=== PATIENT | female | born 1960 | race Caucasian/White ===

== ENCOUNTER → 2019-12-09 | Emergency (ER) | payer OTHER ==
[~2019-12-09] VITALS: Ht 157.5 cm; Wt 117.9 kg
[2019-12-09 18:59] VITALS: BP 154/83
== END | disposition home or self-care (01) ==
LOC: EDBD 16:14 → ER 16:14
DX: S50.812A Abrasion of left forearm, initial encounter (principal); M62.830 Muscle spasm of back; R51 Headache; M54.2 Cervicalgia; V43.52XA Car driver injured in collision with other type car in traffic accident, initial encounter; Y93.I9 Activity, other involving external motion; Y92.488 Other paved roadways as the place of occurrence of the external cause; Y99.8 Other external cause status
CPT/HCPCS: 70450; 72125; 72131

== ENCOUNTER 2024-07-23 14:58 | Inpatient (IN) | payer OTHER ==
[~2024-07-23] VITALS: Ht 157.5 cm; Wt 111.0 kg
--- NOTE | 2024-07-23 15:15 | ED.PDOC ---
History of Present Illness HPI Comments 64Y F with PMHx HTN presents to ED with chief complaint numbness and slurred speech x today. Pt reports numbness of left middle finger and tongue. All symptoms lasted approximately 30minutes and have resolved upon ED evaluation. Pt states BP was 200s/100s at home. Pt has not taken HTN meds in 6 months. No other symptoms/history reported. Time Seen by MD: 15:10 Reviewed Notes: Nurses Notes, Medications, Allergies Allergies: Coded Allergies: NO KNOWN ALLERGIES (Unverified , 12/09/19) Information Source: Patient Mode of Arrival: Ambulatory Severity: Mild Timing: Minutes Duration: Minutes Prehospital treatment: None Medication Refill: Ran out of Medication, For: Hypertension Past Medical History PAST MEDICAL HISTORY: HTN Surgical History: Denies all surgeries SAP PP CONSULTANT History: Denies all SAP PP CONSULTANT Hx Family History Family History: Reviewed,noncontributory to illness Social History Smoker: Non-Smoker Alcohol: Rarely Drugs: Denies Drug Use Lives In: Home Constitutional: denies: chills, diaphoresis, fatigue, fever, malaise, sweats, weakness, others EENTM: denies: blurred vision, double vision, ear bleeding, ear discharge, ear drainage, ear pain, ear ringing, eye pain, eye redness, hearing loss, mouth pain, mouth swelling, nasal discharge, nose bleeding, nose congestion, nose pain, photophobia, tearing, throat pain, throat swelling, voice changes, others Respiratory: denies: cough, hemoptysis, orthopnea, SOB at rest, shortness of breath, SOB with excertion, stridor, wheezing, others Cardiovascular: denies: chest pain, dizzy spells, diaphoresis, Dyspnea on exertion, edema, irregular heart beat, left arm pain, lightheadedness, palpitations, PND, syncope, others Gastrointestinal: denies: abdomen distended, abdominal pain, blood streaked bowels, constipated, diarrhea, dysphagia, difficulty swallowing, hematemesis, melena, nausea, poor appetite, poor fluid intake, rectal bleeding, rectal pain, vomiting, others Genitourinary: denies: abnormal vagina bleeding, burning, dyspareunia, dysuria, flank pain, frequency, hematuria, incontinence, pain, , vagina discharge, urgency, others Neurological: reports: numbness (lt middle finger, tongue), others (slurred speech); denies: dizziness, fainting, headache, left sided numbness, left sided weakness, paresthesia, pre-existing deficit, right sided numbness, right sided weakness, seizure, speech problems, tingling, tremors, weakness Musculoskeletal: denies: back pain, gout, joint pain, joint swelling, muscle pain, muscle stiffness, neck pain, others Integumetry: denies: bruises, change in color, change in hair/nails, dryness, laceration, lesions, lumps, rash, wounds, others Allergic/Immunocompromised: denies: Difficulty Healing, Frequent Infections, Hives, Itching, others Hematologic/Lymphatic: denies: anemia, blood clots, easy bleeding, easy bruising, swollen glands, others Endocrine: denies: excessive hunger, excessive sweating, excessive thirst, excessive urination, flushing, intolerance to cold, intolerance to heat, unexplained weight gain, unexplained weight loss, others Psychiatric: denies: anxiety, bipolar disorder, depression, hopeless, panic disorder, schizophrenia, sleepless, suicidal, others All Other Systems: Reviewed and Negative Physical Exam General Appearance: No Apparent Distress, Normal HEENT: Normal ENT Inspection, Pharynx Normal, TMs Normal Neck: Full Range of Motion, Non-Tender, Normal, Normal Inspection Respiratory: Chest Non-Tender, Lungs Clear, No Accessory Muscle Use, No Respiratory Distress, Normal Breath Sounds Cardiovascular: No Edema, No JVD, No Murmur, No Gallop, Normal Peripheral Pulses, Regular Rate/Rhythm Breast Exam: Deferred Gastrointestinal: No Organomegaly, Non Tender, No Pulsatile Mass, Normal Bowel Sounds, Soft Genitalia: Deferred Pelvic: Deferred Rectal: Deferred Extremities: No calf tenderness, Normal capillary refill, Normal inspection, No rmal range of motion, Non-tender, No pedal edema Musculoskeletal : Apperance: Normal Neurologic: Alert, 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 Was a procedure done?: No Differential Dx Considerations may include: ACS, CVA, viral syndrome, electrolyte abnormality, X-Ray, Labs, Meds, VS Vital Signs Date Time Temp Pulse Resp B/P (MAP) Pulse Ox O2 Delivery O2 Flow Rate FiO2 07/23/24 17:29 98.4 77 20 132/75 (94) 100 98.4 07/23/24 15:19 97.3 86 19 154/81 (105) 100 97.3 07/23/24 15:14 74 Lab Test 07/23/24 16:44 07/23/24 15:40 Range/Units Troponin I High Sensitivity < 3 L < 3 L </=34 ng/L White Blood Count 8.0 4.4-10.8 10^3/uL Red Blood Count 5.03 4.0-5.20 10^6/uL Hemoglobin 14.8 12.2-16.2 g/dL Hematocrit 42.3 36.0-46.0 % Mean Corpuscular Volume 84.1 80.0-100.0 fL Mean Corpuscular Hemoglobin 29.4 28.0-32.0 pg Mean Corpuscular Hemoglobin Concent 35.0 32.0-36.0 g/dL Red Cell Distribution Width 13.3 11.8-14.3 % Platelet Count 322 140-450 10^3/uL Mean Platelet Volume 8.1 6.9-10.8 fL Neutrophils (%) (Auto) 53.1 37.0-80.0 % Lymphocytes (%) (Auto) 33.3 10.0-50.0 % Monocytes (%) (Auto) 10.6 0.0-12.0 % Eosinophils (%) (Auto) 2.4 0.0-7.0 % Basophils (%) (Auto) 0.6 0.0-2.0 % Neutrophils # (Auto) 4.2 1.6-8.6 10 ^3/uL Lymphocytes # (Auto) 2.7 0.4-5.4 10 ^3/uL Monocytes # (Auto) 0.8 0-1.3 10 ^3/uL Eosinophils # (Auto) 0.2 0-0.8 10 ^3/uL Basophils # (Auto) 0.1 0-0.2 10 ^3/uL Nucleated Red Blood Cells 0.1 % Sodium Level 138 136-145 mmol/L Potassium Level 4.3 3.5-5.1 mmol/L Chloride Level 104 98-107 mmol/L Carbon Dioxide Level 26 20-31 mmol/L Anion Gap 8 5-15 Blood Urea Nitrogen 17 9-23 mg/dL Creatinine 0.63 0.550-1.02 mg/dL Glomerular Filtration Rate Calc 99 >90 mL/min BUN/Creatinine Ratio 27.0 H 10.0-20.0 Serum Glucose 118 H 74-106 mg/dL Calcium Level 10.6 H 8.7-10.4 mg/dL [place] [address] Ph: [phone] DIAGNOSTIC IMAGING Diagnostic Imaging Report : [id number] Signed PATIENT: BRENDAN DE LEÓN ACCT: [id number] UNIT: [id number] : 1960 LOC: ER ROOM / BED: / AGE / SEX: 64 / F ADM STATUS: REG ER SERVICE 152 ORDERING PHYSICIAN: YAS BEAR MD PROCEDURE(s): CXRP - CHEST PORTABLE REASON: htn ORDER NUMBER(s): [id number], ACCESSION NUMBER(s): [id number] CHEST RADIOGRAPH Indication: htn Technique: Single frontal view of the chest was obtained Comparison: None FINDINGS: Lines and Tubes: None Lungs: No focal consolidation. Pleura: No effusion. No pneumothorax. Cardiomediastinal contours: Unremarkable Bones: No acute osseous abnormality. IMPRESSION: No acute cardiopulmonary disease. ATED BY: YVETTE DOMÍNGUEZ DO DICTATED DATE/TIME: 07/23/241547 SIGNED BY: YVETTE DOMÍNGUEZ DO SIGNED DATE/TIME: 07/23/24 154 CC: [place] [address] Ph: [phone] DIAGNOSTIC IMAGING Diagnostic Imaging Report : [id number] Signed PATIENT: BRENDAN DE LEÓN ACCT: [id number] UNIT: [id number] : 1960 LOC: ER ROOM / BED: / AGE / SEX: 64 / F ADM STATUS: REG ER SERVICE 22 ORDERING PHYSICIAN: YAS BEAR MD PROCEDURE(s): HWOCT - HEAD WITHOUT CONTRAST REASON: htn, weakness, headache ORDER NUMBER(s): [id number], ACCESSION NUMBER(s): [id number] EXAM: CT HEAD WITHOUT CONTRAST HISTORY: htn, weakness, headache COMPARISON: HEAD WITHOUT CONTRAST on DOS: 12/09/19 TECHNIQUE: Axial images were obtained and reformatted in coronal and sagittal planes. All CT scans at this medical facility are performed using dose modulation techniques as appropriate to a performed exam including the following: Automated exposure control was utilized; adjustment of the MA and/or KV according to patient size; and use of iterative reconstruction technique. CT Dose: CTDI volume is 54 mGy. Dose-length product is 965 mGy*cm FINDINGS: Supratentorial Region: No evidence for large acute territorial ischemia. 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 No intracranial hemorrhage is noted. Posterior Fossa: No acute abnormality. Brainstem: Unremarkable. Sellar/Suprasellar Region: Unremarkable. Ventricles, Cisterns, Sulci: Age-appropriate. Orbits: Unremarkable. Paranasal Sinuses: Unremarkable. Mastoid Air Cells: Unremarkable. Vasculature: Unremarkable. Bones/Soft Tissues: No acute abnormality. Other: None. IMPRESSION: 1. No acute intracranial process. ATED BY: YAMILA OAKES MD DICTATED DATE/TIME: 07/23/24 160 SIGNED BY: YAMILA OAKES MD SIGNED DATE/TIME: 07/23/24 1606 CC: Time of 1ST Reevaluation: 15:40 Reevaluation 1ST: Unchanged Patient Education/Counseling: Diagnosis, Treatment Family Education/Counseling: No Family Present Departure 1 Departure Time of Disposition: 18:00 (Patient with concern for TIA. We will admit patient for further workup and expert consultation) Impression: Primary Impression: Slurred speech Additional Impressions: Weakness Hypertensive emergency Disposition: ADMITTED INPATIENT Admit to: Med Surg Condition: Serious Critical Care Note Critical Care Time?: Yes Critical care comment: Concern for tia Authorized and Performed by: Yas Bear MD Total critical care time: Approximately 39 minutes Due to a high probability of clinically significant, life threatening deterioration, the patient required my highest level of preparedness to intervene emergently and I personally spent this critical care time directly and personally managing the patient. This critical care time included obtaining a history; examining the patient; pulse oximetry; ordering and review of studies; arranging urgent treatment with development of a management plan; evaluation of patient's response to treatment; frequent reassessment; and, discussions with other providers. This critical care time was performed to assess and manage the high probability of imminent, life-threatening deterioration that could result in multi-organ failure. It was exclusive of separately billable procedures and treating other patients and teaching time. Please see my other sections and the rest of the note for further information on patient assessment and treatment. Stability Stability form required: No Heart Score Heart Score: Heart Score Response (Comments) Value History Slightly Suspicious 0 EKG Normal 0 Age 45-64 1 Risk Factors 1 or 2 risk factors 1 Troponin Normal limit 0 Total 2 I personally scribed for YAS BEAR MD (RED) on 07/23/24 at 15:15. E lectronically submitted by Fidelia Ledesma ([employer]). I personally scribed for YAS BEAR MD (AMY) on 07/23/24 at 15:57. Electronically submitted by Fidelia Ledesma ([place]). I personally scribed for YAS BEAR MD (AMY) on 07/23/24 at 17:00. Electronically submitted by Fidelia eLdesma ([place]). YAS BEAR MD Jul 23, 2024 15:15
--- NOTE | 2024-07-23 15:50 | DVH ---
CHEST RADIOGRAPH Indication: htn Technique: Single frontal view of the chest was obtained Comparison: None FINDINGS: Lines and Tubes: None Lungs: No focal consolidation. Pleura: No effusion. No pneumothorax. Cardiomediastinal contours: Unremarkable Bones: No acute osseous abnormality. IMPRESSION: No acute cardiopulmonary disease.
[2024-07-23 16:07] LABS: Chloride 104 mmol/L (98-107); Potassium 4.3 mmol/L (3.5-5.1); Sodium 138 mmol/L (136-145)
[2024-07-23 16:08] LABS: Anion Gap 8 (5-15); Carbon Dioxide 26 mmol/L (20-31)
--- NOTE | 2024-07-23 16:08 | DVH ---
EXAM: CT HEAD WITHOUT CONTRAST HISTORY: htn, weakness, headache COMPARISON: HEAD WITHOUT CONTRAST on DOS: 12/09/19 TECHNIQUE: Axial images were obtained and reformatted in coronal and sagittal planes. All CT scans at this medical facility are performed using dose modulation techniques as appropriate t o a performed exam including the following: Automated exposure control was utilized; adjustment of th e MA and/or KV according to patient size; and use of iterative reconstruction technique. CT Dose: CTDI volume is 54 mGy. Dose-length product is 965 mGy*cm FINDINGS: Supratentorial Region: No evidence for large acute territorial ischemia. An old lacunar infarct is s een in the left basal ganglia. No intracranial hemorrhage is noted. Posterior Fossa: No acute abnormality. Brainstem: Unremarkable. Sellar/Suprasellar Region: Unremarkable. Ventricles, Cisterns, Sulci: Age-appropriate. Orbits: Unremarkable. Paranasal Sinuses: Unremarkable. Mastoid Air Cells: Unremarkable. Vasculature: Unremarkable. Bones/Soft Tissues: No acute abnormality. Other: None. IMPRESSION: 1. No acute intracranial process.
[2024-07-23 16:13] LABS: Blood Urea Nitrogen 17 mg/dL (9-23); Calcium 10.6 mg/dL (8.7-10.4); Glucose 118 mg/dL (74-106)
[2024-07-23 16:26] LABS: Basophils # (auto) 0.1 10 ^3/uL (0-0.2); Basophils % (auto) 0.6 % (0.0-2.0); Eosinophils # (auto) 0.2 10 ^3/uL (0-0.8); Eosinophils % (auto) 2.4 % (0.0-7.0); Hematocrit 42.3 % (36.0-46.0); Hemoglobin 14.8 g/dL (12.2-16.2); Lymphocytes # (auto) 2.7 10 ^3/uL (0.4-5.4); Lymphocytes % (auto) 33.3 % (10.0-50.0); Mean Corpuscular Hemoglobin 29.4 pg (28.0-32.0); Mean Corpuscular Volume 84.1 fL (80.0-100.0); Monocytes # (auto) 0.8 10 ^3/uL (0-1.3); Monocytes % (auto) 10.6 % (0.0-12.0); Neutrophils # (auto) 4.2 10 ^3/uL (1.6-8.6); Neutrophils % (auto) 53.1 % (37.0-80.0); Nucleated Red Blood Cells % 0.1 %; Platelet Count (auto) 322 10^3/uL (140-450); Red Blood Cells 5.03 10^6/uL (4.0-5.20); Red Cell Distribution Width 13.3 % (11.8-14.3)
[2024-07-23] MEDS ORDERED: ACETAMINOPHEN 325 MG TAB PO PRN (19:30)
[2024-07-23] MEDS ORDERED: cloNIDine HCL 0.1 MG TAB PO PRN (19:30)
[2024-07-23] MEDS ORDERED: ONDANSETRON HCL 4 MG/2 ML VIAL IV PRN (19:30)
[2024-07-23 22:00] VITALS: PULSE 75; RESP 14; O2SAT 95
[2024-07-23 22:40] VITALS: BP 194/94; PULSE 77; RESP 16; TEMP 97.4; O2SAT 97
[2024-07-23] MEDS: cloNIDine HCL 0.1 MG TAB PO PRN (23:12)
[2024-07-23] MEDS: TEMAZEPAM 15 MG CAP PO PRN (23:12)
[2024-07-23] MEDS: ACETAMINOPHEN 325 MG TAB PO PRN (23:12)
[2024-07-23] MEDS: ONDANSETRON HCL 4 MG/2 ML VIAL IV PRN (23:12)
[2024-07-23] MEDS ORDERED: CALCIUM CARB 500 MG CHEW TAB PO PRN (23:30)
--- NOTE | 2024-07-23 23:40 | DVHHP2 ---
History of Present Illness Reason for Visit: Hypertension History of Present Illness 64-year-old female presents for evaluation of hypertension. Patient reports developing some slurred speech and left hand numbness today. That prompted her to check her blood pressure which was reading high in the 200s. She denies headache or blurred vision. Currently her symptoms have subsided. Blood pressures in the 170s. Denies chest pain or shortness for breath. No other acute complaints reported. Patient also reports she has not taking her antihypertensives for six months. Past Medical History Hypertension Past Surgical History Denies Family History Noncontributory Smoke: No ALCOHOL: none Drugs: None Lives: with Family Review of Systems Review of Systems Review of systems are currently negative otherwise addressed in HPI. Allergies: Coded Allergies: NO KNOWN ALLERGIES (Unverified , 12/09/19) Medications Current Medications Medications Dose Ordered Sig/Rayray Route Start Time Stop Time Status Last Admin Dose Admin Amlodipine Besylate 5 mg DAILY PO 07/24/24 10:00 Clonidine HCl 0.1 mg Q6HP PRN PO 07/23/24 22:15 07/23/24 23:12 0.1 MG Temazepam 15 mg QHSP PRN PO 07/23/24 22:15 07/23/24 23:12 15 MG Ondansetron HCl 4 mg Q4HP PRN IV 07/23/24 22:15 07/23/24 23:12 4 MG Acetaminophen 650 mg Q6HP PRN PO 07/23/24 22:15 07/23/24 23:12 650 MG Exam Vital Signs Vital Signs Date Time Temp Pulse Resp B/P (MAP) Pulse Ox O2 Delivery O2 Flow Rate FiO2 07/23/24 23:12 194/94 07/23/24 22:40 97.4 77 16 97 97.4 07/23/24 22:00 Room Air* 0 21 Exam Gen: 64-year-old female in mild distress Skin: Warm, dry, normal color and texture, no rash. HEENT: Normocephalic atraumatic, mucous membranes moist and pink. Neck: Cervical and supraclavicular nodes normal without enlargement, trachea is midline, thyroid gland is normal without masses. Pulmonary: Clear to auscultation and percussion bilaterally. Cardiac: Regular rate and rhythm. No murmur Abdomen: Soft, nontender, nondistended, bowel sounds present all 4 quadrants, no guarding, no rigidity, no organomegaly. Extremities: No cyanosis, clubbing, no edema Neuro: Cranial nerves II through XII grossly intact, normal affect and speech, no focal motor deficits. Labs/Xrays ORDERING PHYSICIAN: YAS BEAR MD PROCEDURE(s): CXRP - CHEST PORTABLE REASON: htn ORDER NUMBER(s): [id number], ACCESSION NUMBER(s): [id number] CHEST RADIOGRAPH Indication: htn Technique: Single frontal view of the chest was obtained Comparison: None FINDINGS: Lines and Tubes: None Lungs: No focal consolidation. Pleura: No effusion. No pneumothorax. Cardiomediastinal contours: Unremarkable Bones: No acute osseous abnormality. IMPRESSION: No acute cardiopulmonary disease. RING PHYSICIAN: YAS BEAR MD PROCEDURE(s): HWOCT - HEAD WITHOUT CONTRAST REASON: htn, weakness, headache ORDER NUMBER(s): [id number], ACCESSION NUMBER(s): [id number] EXAM: CT HEAD WITHOUT CONTRAST HISTORY: htn, weakness, headache COMPARISON: HEAD WITHOUT CONTRAST on DOS: 12/09/19 TECHNIQUE: Axial images were obtained and reformatted in coronal and sagittal planes. All CT scans at this medical facility are performed using dose modulation techniques as appropriate to a performed exam including the following: Automated exposure control was utilized; adjustment of the MA and/or KV according to patient size; and use of iterative reconstruction technique. CT Dose: CTDI volume is 54 mGy. Dose-length product is 965 mGy*cm FINDINGS: Supratentorial Region: No evidence for large acute territorial ischemia. 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 No intracranial hemorrhage is noted. Posterior Fossa: No acute abnormality. Brainstem: Unremarkable. Sellar/Suprasellar Region: Unremarkable. Ventricles, Cisterns, Sulci: Age-appropriate. Orbits: Unremarkable. Paranasal Sinuses: Unremarkable. Mastoid Air Cells: Unremarkable. Vasculature: Unremarkable. Bones/Soft Tissues: No acute abnormality. Other: None. IMPRESSION: 1. No acute intracranial process. ATED BY: YAMILA OAKES MD Labs Test 07/23/24 18:53 07/23/24 15:40 Range/Units Troponin I High Sensitivity < 3 L </=34 ng/L White Blood Count 8.0 4.4-10.8 10^3/uL Red Blood Count 5.03 4.0-5.20 10^6/uL Hemoglobin 14.8 12.2-16.2 g/dL Hematocrit 42.3 36.0-46.0 % Mean Corpuscular Volume 84.1 80.0-100.0 fL Mean Corpuscular Hemoglobin 29.4 28.0-32.0 pg Mean Corpuscular Hemoglobin Concent 35.0 32.0-36.0 g/dL Red Cell Distribution Width 13.3 11.8-14.3 % Platelet Count 322 140-450 10^3/uL Mean Platelet Volume 8.1 6.9-10.8 fL Neutrophils (%) (Auto) 53.1 37.0-80.0 % Lymphocytes (%) (Auto) 33.3 10.0-50.0 % Monocytes (%) (Auto) 10.6 0.0-12.0 % Eosinophils (%) (Auto) 2.4 0.0-7.0 % Basophils (%) (Auto) 0.6 0.0-2.0 % Neutrophils # (Auto) 4.2 1.6-8.6 10 ^3/uL Lymphocytes # (Auto) 2.7 0.4-5.4 10 ^3/uL Monocytes # (Auto) 0.8 0-1.3 10 ^3/uL Eosinophils # (Auto) 0.2 0-0.8 10 ^3/uL Basophils # (Auto) 0.1 0-0.2 10 ^3/uL Nucleated Red Blood Cells 0.1 % Sodium Level 138 136-145 mmol/L Potassium Level 4.3 3.5-5.1 mmol/L Chloride Level 104 98-107 mmol/L Carbon Dioxide Level 26 20-31 mmol/L Anion Gap 8 5-15 Blood Urea Nitrogen 17 9-23 mg/dL Creatinine 0.63 0.550-1.02 mg/dL Glomerular Filtration Rate Calc 99 >90 mL/min BUN/Creatinine Ratio 27.0 H 10.0-20.0 Serum Glucose 118 H 74-106 mg/dL Calcium Level 10.6 H 8.7-10.4 mg/dL Assessment/Plan Assessment/Plan Assessment Hypertensive urgency Plan Admit the patient to Med surge to the hospitalist Resume home medications As needed antihypertensives Echocardiogram pending Continue treatment per orders. Plan discussed with: Patient My Orders Orders - SULEMAN LOAIZA Procedure Category Date Status Time Echo 2d Mode Cardiac US 07/23/24 Logged DOP 19:20 Basic Metabolic Panel LAB 07/24/24 Verified 04:00 Amlodipine Tablet PHA 07/24/24 In Process (Norvasc Tablet) 10:00 Clonidine Hcl Tablet PHA 07/23/24 In Process (Catapres Tablet) 22:15 Admit ADMIT 07/23/24 Transmitted 22:14 Temazepam (Restoril) PHA 07/23/24 In Process 22:15 Ondansetron Hcl PHA 07/23/24 In Process (Zofran) 22:15 Cardiac DIET 07/24/24 Transmitted Diet-2gna,Lofat,Lochol Breakfast Condition: Stable NABILA 07/23/24 In Process 22:14 Acetaminophen Tablet PHA 07/23/24 In Process (Tylenol Tablet) 22:15 Bedrest With Bathroom NABILA 07/23/24 In Process Privileg 22:14 Calcium Carbonate PHA 07/23/24 Logged (Tums) 23:30 Date of Service: Jul 23, 2024 Billing Provider: SULEMAN LOAIZA Common Visit Codes: [id number] INP/OBS CARE (HIGH) SULEMAN LOAIZA Jul 23, 2024 23:40
[2024-07-24] VITALS (7 sets, daily range): BP systolic 129–160; BP diastolic 66–81; PULSE 69–77; RESP 16–18; TEMP 97.3–97.7; O2SAT 93–97
[2024-07-24 05:57] LABS: Chloride 106 mmol/L (98-107); Sodium 138 mmol/L (136-145)
[2024-07-24 05:58] LABS: Anion Gap 8 (5-15); Calcium 10.1 mg/dL (8.7-10.4); Carbon Dioxide 24 mmol/L (20-31)
[2024-07-24 06:03] LABS: Blood Urea Nitrogen 16 mg/dL (9-23)
[2024-07-24 06:04] LABS: Glucose 117 mg/dL (74-106)
[2024-07-24] MEDS: amLODIPine BESYLATE 5 MG TAB PO SCH (08:08)
--- NOTE | 2024-07-24 08:56 | DVHPN2 ---
Progress Note - Dictate Date Seen: Jul 24, 2024 Medical Necessity Reason Pt with a Central, PICC or Fol: No vital signs Vital Sign Date Time Temp Pulse Resp B/P (MAP) Pulse Ox O2 Delivery O2 Flow Rate FiO2 07/24/24 08:08 160/69 07/24/24 07:42 18 Room Air* 0 21 07/24/24 05:00 97.5 77 93 97.5 Total Intake and Output 07/23/24 07/23/24 07/24/24 15:00 23:00 07:00 Intake Total 600 ml Balance 600 ml medications Current Medications Medications Dose Ordered Sig/Rayray Route Start Time Stop Time Status Last Admin Dose Admin Amlodipine Besylate 5 mg DAILY PO 07/24/24 10:00 07/24/24 08:08 5 MG Clonidine HCl 0.1 mg Q6HP PRN PO 07/23/24 22:15 07/24/24 05:36 0.1 MG Temazepam 15 mg QHSP PRN PO 07/23/24 22:15 07/23/24 23:12 15 MG Ondansetron HCl 4 mg Q4HP PRN IV 07/23/24 22:15 07/23/24 23:12 4 MG Acetaminophen 650 mg Q6HP PRN PO 07/23/24 22:15 07/23/24 23:12 650 MG Calcium Carbonate 500 mg QIDPRN PRN PO 07/23/24 23:30 objective General Appearance: alert, no distress HEENT: EOMI, PERRLA, normal external inspect of ears, no icterus, no nasal drainage Neck: no carotid bruit, no jugular venous distention (JVD), no lymphadenopathy Chest: normal thorax Respiratory: clear to auscultation, normal air movement Cardiovascular: regular rate and rhythm, no diastolic murmur, no jugular venous distention (JVD), no rub, no systolic murmur Abdominal: soft, no hepatomegaly, no mass, no splenomegaly, no tenderness Genitourinary: grossly normal external Musculoskeletal: no joint tenderness, no swelling Extremities: normal pulses, no calf tenderness, no clubbing, no cyanosis, no edema Skin: no bruising, no jaundice, no rash Neurological: alert, No focal deficit laboratory and microbiology Laboratory Tests 07/24/24 05:28 07/23/24 15:40 Test 07/24/24 05:28 Range/Units Serum Glucose 117 H 74-106 mg/dL Problem List Assessment Hypertensive urgency Plan Admit the patient [place] [facility] [place] Resume home medications As needed antihypertensives Echocardiogram pending Continue treatment per orders. Assessment/Plan Subjective Patient is awake and alert. Objective Patient was admitted for slurred speech, left hand numbness, and hypertensive urgency, with the blood pressure in the two hundreds. Symptoms did resolve in the emergency room and blood pressure is now more controlled. Plan Cardiology evaluation. Echocardiogram. Neurology consult. Obtain MRI of the brain. Monitor vitals if cleared by specialist possible discharge in AM. Plan discussed with: Patient, Other [address] TRAFFIC [employer]ER Jul 24, 2024 08:56
[2024-07-24] MEDS ORDERED: MET50T PO (08:58)
[2024-07-24 09:16] LABS: Triglycerides 141 mg/dL (< 150)
[2024-07-24 09:17] LABS: LDL Cholesterol 101 mg/dL (< 100)
[2024-07-24 09:18] LABS: Cholesterol 169 mg/dL (< 200); HDL Cholesterol 46 mg/dL (40-59)
[2024-07-24] MEDS ORDERED: METOPROLOL SUCCINATE XL 50 MG TAB PO SCH (10:00)
[2024-07-24] MEDS ORDERED: hydroCHLOROthiazide 25 MG TAB PO SCH (10:00)
[2024-07-24] MEDS ORDERED: LISINOPRIL 20 MG TAB PO SCH (10:00)
[2024-07-24] MEDS ORDERED: ENOXAPARIN SOD 40 MG/0.4 ML SYRINGE SC SCH (10:00)
[2024-07-24] MEDS: amLODIPine BESYLATE 5 MG TAB PO ONE (10:14)
[2024-07-24] MEDS: LISINOPRIL 20 MG TAB PO SCH (11:07)
[2024-07-24] MEDS: hydroCHLOROthiazide 25 MG TAB PO SCH (11:08)
--- NOTE | 2024-07-24 14:44 | DVH ---
PROCEDURE: MRI BRAIN HEAD WO CONTRAST INDICATION: r/o cva EXAM DATE: 07/24/2024 12:56 PM COMPARISON: None TECHNIQUE: MRI of the brain without intravenous contrast. FINDINGS: Diffusion weighted images of the brain demonstrate no evidence of acute infarction. There is no evidence of acute intracranial hemorrhage, extra-axial collection, mass effect, midline s hift, herniation or hydrocephalus. The ventricles, sulci and cisterns appear age appropriate. Mild changes of chronic microvascular ischemic disease. There are no signal abnormalities on the susceptibility weighted sequences. The major vascular flow voids are present. The visualized paranasal sinuses and mastoid air cells are clear. The surrounding soft tissues and o sseous structures are unremarkable. IMPRESSION: 1. No evidence of acute infarction, intracranial hemorrhage, mass effect or hydrocephalus. Mild faria es of chronic microvascular ischemic disease. HS:Y
--- NOTE | 2024-07-24 18:01 | DVHSR ---
APPROVED REPORT EXAM: Two-dimensional and M-mode echocardiogram with Doppler and color Doppler. Blood Pressure: 151/80 mmHg INDICATION Hypertension RISK FACTORS Height: 62, Weight: 250 DIMENSIONS LVDd4.3 (3.8-5.7cm)LA (2D)3.9 (1.9-4.0cm)Aortic Root3.4 (2.0-3.7cm) LVDs3.1 (2.5-4.0cm)LA (MM) (1.9-4.0cm)Aortic Cusp Exc1.7 (1.5-2.0cm) EF (%) 55.0 (55-70%)Rt. Atrium3.4 (1.9-4.0cm)Asc. Aorta cm Mitral Valve MitralMitral Stenosis E wave0.52m/sMV Mean GR.mmHg A wave1.05m/sMV Peak GR.mmHg E/A ratio0.52D MVAcm2 DECEL [id number] 1/2 Tmax36qv IVRTmsDop MVA2.97cm2 Aortic Valve Aortic ValveAortic Stenosis V10.99m/Hernandez Mean GR.3mmHg V21.23m/Hernandez Peak GR.6mmHg LVOT Diameter2.0 (1.8-2.4cm)Doppler AVA2.53cm2 Pulmonic Valve V20.71m/s Tricuspid Valve TR Velocity2.21m/s [id number] Conclusion Left ventricle: Left ventricle was normal-sized with normal systolic function. LVEF was around 55%. There was no gross wall motion abnormality. Right ventricle was normal-sized with normal systolic function. Both atria were normal-sized. Aortic valve: Aortic valve was trileaflet. There was no aortic insufficiency/stenosis. There was tr elsie mitral/tricuspid regurgitation. There was trace pulmonary valve insufficiency. Right ventricular systolic pressure was assessed at 24 mm Hg (normal). There was no pericardial effu gail.
--- NOTE | 2024-07-24 18:27 | DVHINCON2 ---
Date of service: Jul 24, 2024 History of Present Illness HPI Patient is a 64-year-old female who presented to the hospital was started speech/left 3rd finger numbness. She mentions that she felt like above and her blood pressure at home was above 200/100 and decided to come to the hospital. She mentions that previously she had high blood pressure and after losing around 40 lb, she was told to hold back on her high blood pressure medications. Does not have a blood pressure machine at home. On arrival to the hospital her blood pressure was 194/94. Has been kept with hypertensive emergency. Cardiology was involved for cardiac aspects of care. Denies chest pains. Denies palpitations. Denies loss of consciousness. Denies previous cardiac history. Denies previous cardiology visits. Home Meds Reported Medications Metoprolol Tartrate (LOPRESSOR TABLET) 50 Mg Tb, 1 TAB PO DAILY 07/24/24 Past Medical History Others Past medical history includes morbid obesity and hypertension. He has had C- section and hysterectomy before. Patient Family History: Patient reports no known family medical history. Alocohol: Rare Drugs: Marijuana Lives with: With family Review of Systems Constitutional: No symptom reported Cardiovascular: No symptom reported All Other Systems 14 point review of system was performed. Relevant findings as per above and as per HPI. Otherwise negative. H&P Exam Vital Signs Vital Signs Date Time Temp Pulse Resp B/P (MAP) Pulse Ox O2 Delivery O2 Flow Rate FiO2 07/24/24 17:30 97.7 72 16 135/66 (89) 96 97.7 07/24/24 07:42 Room Air* 0 21 General Appeara: Well developed, Well nourished, Obese Head Exam: Normal inspection Neck Exam: Normal inspection Eye Exam: bilateral eye PERRL Nasal Exam: Normal inspection Mouth: Normal Inspection Pulmonary/Respiratory: Lungs clear Cardiovascular/Chest: Normal inspection, Regular rate Peripheral Pulses: 2+ carotid (R), 2+ carotid (L), 2+ femoral (R), 2+ femoral (L), 2+ dorsalis pedis (R), 2+ dorsalis pedis (L), 2+ Radial (R), 2+ Radial (L) Abdominal Exam: Normal bowel sounds, Soft, No hepatospenomegaly Neuro/Mental St: Alert, Oriented Appearance: Appropriate appearance Eye contact/ Speech: Cooperative Labs/Xrays Labs Test 07/24/24 05:28 4/2/25 18:53 07/23/24 15:40 Range/Units Sodium Level 138 136-145 mmol/L Potassium Level 4.0 3.5-5.1 mmol/L Chloride Level 106 98-107 mmol/L Carbon Dioxide Level 24 20-31 mmol/L Anion Gap 8 5-15 Blood Urea Nitrogen 16 9-23 mg/dL Creatinine 0.64 0.550-1.02 mg/dL Glomerular Filtration Rate Calc 99 >90 mL/min BUN/Creatinine Ratio 25.0 H 10.0-20.0 Serum Glucose 117 H 74-106 mg/dL Hemoglobin A1c 6.0 H <5.7 % A1C Calcium Level 10.1 8.7-10.4 mg/dL B-Type Natriuretic Peptide 6.49 0-100 pg/mL Triglycerides Level 141 < 150 mg/dL Cholesterol Level 169 < 200 mg/dL LDL Cholesterol 101 H < 100 mg/dL HDL Cholesterol 46 40-59 mg/dL Troponin I High Sensitivity < 3 L </=34 ng/L White Blood Count 8.0 4.4-10.8 10^3/uL Red Blood Count 5.03 4.0-5.20 10^6/uL Hemoglobin 14.8 12.2-16.2 g/dL Hematocrit 42.3 36.0-46.0 % Mean Corpuscular Volume 84.1 80.0-100.0 fL Mean Corpuscular Hemoglobin 29.4 28.0-32.0 pg Mean Corpuscular Hemoglobin Concent 35.0 32.0-36.0 g/dL Red Cell Distribution Width 13.3 11.8-14.3 % Platelet Count 322 140-450 10^3/uL Mean Platelet Volume 8.1 6.9-10.8 fL Neutrophils (%) (Auto) 53.1 37.0-80.0 % Lymphocytes (%) (Auto) 33.3 10.0-50.0 % Monocytes (%) (Auto) 10.6 0.0-12.0 % Eosinophils (%) (Auto) 2.4 0.0-7.0 % Basophils (%) (Auto) 0.6 0.0-2.0 % Neutrophils # (Auto) 4.2 1.6-8.6 10 ^3/uL Lymphocytes # (Auto) 2.7 0.4-5.4 10 ^3/uL Monocytes # (Auto) 0.8 0-1.3 10 ^3/uL Eosinophils # (Auto) 0.2 0-0.8 10 ^3/uL Basophils # (Auto) 0.1 0-0.2 10 ^3/uL Nucleated Red Blood Cells 0.1 % Assessment/Plan Plan Patient is a 64-year-old female who presented to the hospital was started speech/left 3rd finger numbness. She mentions that she felt like above and her blood pressure at home was above 200/100 and decided to come to the hospital. She mentions that previously she had high blood pressure and after losing around 40 lb, she was told to hold back on her high blood pressure medications. Does not have a blood pressure machine at home. On arrival to the hospital her blood pressure was 194/94. Has been kept with hypertensive emergency. Cardiology was involved for cardiac aspects of care. Denies chest pains. Denies palpitations. Denies loss of consciousness. Denies previous cardiac history. Denies previous cardiology visits. Not in acute distress. Obese patient. No JVD. Mucosa is pink and wet. No carotid bruit. Not using accessory muscles of breathing. Lungs are clear to auscultation. Cardiac: Regular, no thrill/gallop. No systolic murmur. Abdomen is soft and obese. There is no gross mass/hepatomegaly. There is no peripheral edema. Dorsalis pedis is 2+ bilateral Past medical history includes morbid obesity and hypertension. He has had and hysterectomy before. Family history includes CVA in her older brother. Smokes marijuana occasionally. Denies cigarette smoking. Denies substance abuse/alcohol abuse. Creatinine: 0.63 - 0.64 Potassium: 4.3-4.0 Troponin (high sensitive): <3 - <3 - <3 BNP: 6.49 EKG: Normal sinus rhythm with no specific ST-T changes, normal EKG Tele reveals sinus rhythm Echocardiogram reported: Left ventricle: Left ventricle was normal-sized with normal systolic function. LVEF was around 55%. There was no gross wall motion abnormality. Right ventricle was normal-sized with normal systolic function. Both atria were normal-sized. Aortic valve: Aortic valve was trileaflet. There was no aortic insufficiency/stenosis. There was trace mitral/tricuspid regurgitation. There was trace pulmonary valve insufficiency. Right ventricular systolic pressure was assessed at 24 mm Hg (normal). There was no pericardial effusion. Patient is a 64-year-old female who presented with finger numbness/tongue numbness and dysarthria. Blood pressure was high at the time of presentation. Presentation questions hypertensive emergency versus TIA. Hypertensive emergency Morbid obesity Hypertension Cardiac suggestion for management: Manage on telemetry Follow-up electrolytes and kidney function tests and correct abnormalities Control hypertension No indication for ischemic workup at this point is present Lifestyle and risk factor modifications Consider Neurology evaluation? Further evaluation and management depends on the above and clinical course Thank you for consultation A total of 75 minutes was spent reviewing the patient record, examining the patient, making a diagnostic and therapeutic plan, discussing this plan with medical personnel, following up on diagnostic studies and following the patient for clinical stability excluding any and all procedures. At least 50% of this time was spent in direct, [id number] contact. Thank you for allowing me to participate in this patient's care. Further recommendations will depend on patient's clinical course. Please do not hesitate to contact me if you have any questions or concerns. This medical document was created using electronic medical record system with [employer] computerized dictation system. Although this document has been carefully reviewed, there may still be some phonetic and typographical errors. These areas are purely typographical due to the imperfection of the software programs, and do not reflect any compromise in the patient's medical care. Plan discussed with: Patient, Other (nurse) OBEY HERBERT MD Jul 24, 2024 18:27
[2024-07-25] VITALS (7 sets, daily range): BP systolic 121–158; BP diastolic 72–82; PULSE 64–97; RESP 16–18; TEMP 97.4–98.4; O2SAT 91–99
--- NOTE | 2024-07-25 06:46 | DVHPN2 ---
Progress Note - Dictate Date Seen: Jul 25, 2024 Medical Necessity Reason Pt with a Central, PICC or Fol: No vital signs Vital Sign Date Time Temp Pulse Resp B/P (MAP) Pulse Ox O2 Delivery O2 Flow Rate FiO2 07/25/24 05:00 97.8 75 18 146/82 (103) 97 97.8 07/24/24 20:00 Room Air* 0 21 Total Intake and Output 07/24/24 07/24/24 07/25/24 14:59 22:59 06:59 Intake Total 900 ml 740 ml Balance 900 ml 740 ml medications Current Medications Medications Dose Ordered Sig/Rayray Route Start Time Stop Time Status Last Admin Dose Admin Clonidine HCl 0.1 mg Q6HP PRN PO 07/23/24 22:15 07/24/24 05:36 0.1 MG Temazepam 15 mg QHSP PRN PO 07/23/24 22:15 07/24/24 21:04 15 MG Ondansetron HCl 4 mg Q4HP PRN IV 07/23/24 22:15 07/23/24 23:12 4 MG Acetaminophen 650 mg Q6HP PRN PO 07/23/24 22:15 07/25/24 03:51 650 MG Calcium Carbonate 500 mg QIDPRN PRN PO 07/23/24 23:30 Amlodipine Besylate 10 mg DAILY PO 07/25/24 10:00 Lisinopril 20 mg DAILY PO 07/24/24 10:00 07/24/24 11:07 20 MG Hydrochlorothiazide 12.5 mg DAILY PO 07/24/24 10:00 07/24/24 11:08 12.5 MG laboratory and microbiology Laboratory Tests 07/24/24 05:28 07/23/24 15:40 Test 07/24/24 05:28 Range/Units Serum Glucose 117 H 74-106 mg/dL Assessment/Plan Patient is a 64-year-old female who presented to the hospital was started speech/left 3rd finger numbness. She mentions that she felt like above and her blood pressure at home was above 200/100 and decided to come to the hospital. She mentions that previously she had high blood pressure and after losing around 40 lb, she was told to hold back on her high blood pressure medications. Does not have a blood pressure machine at home. On arrival to the hospital her blood pressure was 194/94. Has been kept with hypertensive emergency. Cardiology was involved for cardiac aspects of care. Denies chest pains. Denies palpitations. Denies loss of consciousness. Denies previous cardiac history. Denies previous cardiology visits. Not in acute distress. Obese patient. No JVD. Mucosa is pink and wet. No carotid bruit. Not using accessory muscles of breathing. Lungs are clear to auscultation. Cardiac: Regular, no thrill/gallop. No systolic murmur. Abdomen is soft and obese. There is no gross mass/hepatomegaly. There is no peripheral edema. Dorsalis pedis is 2+ bilateral Past medical history includes morbid obesity and hypertension. He has had C- section and hysterectomy before. Family history includes CVA in her older brother. Smokes marijuana occasionally. Denies cigarette smoking. Denies substance abuse/alcohol abuse. Creatinine: 0.63 - 0.64 Potassium: 4.3-4.0 Troponin (high sensitive): <3 - <3 - <3 BNP: 6.49 Chest xry revealed: IMPRESSION: No acute cardiopulmonary disease. CT of head revealed: IMPRESSION: 1. No acute intracranial process. MRI of brain revealed: IMPRESSION: 1. No evidence of acute infarction, intracranial hemorrhage, mass effect or hydrocephalus. Mild changes of chronic microvascular ischemic disease. EKG: Normal sinus rhythm with no specific ST-T changes, normal EKG Tele reveals sinus rhythm Echocardiogram reported: Left ventricle: Left ventricle was normal-sized with normal systolic function. LVEF was around 55%. There was no gross wall motion abnormality. Right ventricle was normal-sized with normal systolic function. Both atria were normal-sized. Aortic valve: Aortic valve was trileaflet. There was no aortic insufficiency/stenosis. There was trace mitral/tricuspid regurgitation. There was trace pulmonary valve insufficiency. Right ventricular systolic pressure was assessed at 24 mm Hg (normal). There was no pericardial effusion. Patient is a 64-year-old female who presented with finger numbness/tongue numbness and dysarthria. Blood pressure was high at the time of presentation. Presentation questions hypertensive emergency versus TIA. Hypertensive emergency Morbid obesity Hypertension Cardiac suggestion for management: Manage on telemetry Follow-up electrolytes and kidney function tests and correct abnormalities Control hypertension No indication for ischemic workup at this point is present Cardiac higgins, can be followed as outpatient Lifestyle and risk factor modifications Further evaluation and management depends on the above and clinical course A total of 55 minutes was spent reviewing the patient record, examining the patient, making a diagnostic and therapeutic plan, discussing this plan with medical personnel, following up on diagnostic studies and following the patient for clinical stability excluding any and all procedures. At least 50% of this time was spent in direct, [id number] contact. Thank you for allowing me to participate in this patient's care. Further recommendations will depend on patient's clinical course. Please do not hesitate to contact me if you have any questions or concerns. This medical document was created using electronic medical record system with [employer] computerized dictation system. Although this document has been carefully reviewed, there may still be some phonetic and typographical errors. These areas are purely typographical due to the imperfection of the software programs, and do not reflect any compromise in the patient's medical care. Plan discussed with: Patient, Other (nurse) OBEY HERBERT MD Jul 25, 2024 06:46
--- NOTE | 2024-07-25 07:12 | ECG ---
[facility] Test Date: 2024-07-23 Test Time: 15:14:46 Pat Name: BRENDAN DE LEÓN Department: ER Room: [address] [place] [address] 5 Gender: F Paid Internship: : 1960 Requested By: YAS BEAR Order Number: [id number] Reading MD: Jose Eduardo Robison Measurements Intervals [place] Rate: 74 P: 73 AR: 176 QRS: 78 QRSD: 84 T: 60 QT: 409 QTc: 454 Interpretive Statements Sinus rhythm Electronically Signed On 07-25-2024 18:42:39 PDT by Jose Eduardo Robison Please click the below link to view image of tracing.
[2024-07-25] MEDS: amLODIPine BESYLATE 5 MG TAB PO SCH (09:16)
--- NOTE | 2024-07-25 12:01 | DVHPN2 ---
Progress Note - Dictate Date Seen: Jul 25, 2024 Medical Necessity Reason Pt with a Central, PICC or Fol: No vital signs Vital Sign Date Time Temp Pulse Resp B/P (MAP) Pulse Ox O2 Delivery O2 Flow Rate FiO2 07/25/24 09:17 130/80 07/25/24 08:40 98.1 64 18 99 98.1 07/25/24 08:10 Room Air* 0 21 Total Intake and Output 07/24/24 07/24/24 07/25/24 15:00 23:00 07:00 Intake Total 900 ml 740 ml Balance 900 ml 740 ml medications Current Medications Medications Dose Ordered Sig/Rayray Route Start Time Stop Time Status Last Admin Dose Admin Clonidine HCl 0.1 mg Q6HP PRN PO 07/23/24 22:15 07/24/24 05:36 0.1 MG Temazepam 15 mg QHSP PRN PO 07/23/24 22:15 07/24/24 21:04 15 MG Ondansetron HCl 4 mg Q4HP PRN IV 07/23/24 22:15 07/23/24 23:12 4 MG Acetaminophen 650 mg Q6HP PRN PO 07/23/24 22:15 07/25/24 03:51 650 MG Calcium Carbonate 500 mg QIDPRN PRN PO 07/23/24 23:30 Amlodipine Besylate 10 mg DAILY PO 07/25/24 10:00 07/25/24 09:16 10 MG Lisinopril 20 mg DAILY PO 07/24/24 10:00 07/25/24 09:16 20 MG Hydrochlorothiazide 12.5 mg DAILY PO 07/24/24 10:00 07/25/24 09:17 12.5 MG objective General Appearance: alert, no distress HEENT: EOMI, PERRLA, normal external inspect of ears, no icterus, no nasal drainage Neck: no carotid bruit, no jugular venous distention (JVD), no lymphadenopathy Chest: normal thorax Respiratory: clear to auscultation, normal air movement Cardiovascular: regular rate and rhythm, no diastolic murmur, no jugular venous distention (JVD), no rub, no systolic murmur Abdominal: soft, no hepatomegaly, no mass, no splenomegaly, no tenderness Genitourinary: grossly normal external Musculoskeletal: no joint tenderness, no swelling Extremities: normal pulses, no calf tenderness, no clubbing, no cyanosis, no edema Skin: no bruising, no jaundice, no rash Neurological: alert, No focal deficit laboratory and microbiology Laboratory Tests 07/24/24 05:28 07/23/24 15:40 Test 07/24/24 05:28 Range/Units Serum Glucose 117 H 74-106 mg/dL Problem List Assessment Hypertensive urgency Plan Admit the patient to Med surge to the hospitalist Resume home medications As needed antihypertensives Echocardiogram pending Continue treatment per orders. Assessment/Plan Subjective Patient is awake and alert. Objective Patient is complaining of a headache. Patient has had hypertensive urgency. Blood pressure is now controlled. Patient was seen by cardiology. EF is estimated at 55%. MRI is negative. Plan Neurology consult still pending. Patient continues to complain of headache. Discharge planning underway. Plan discussed with: Patient, Other HAKEEM YOON NP Jul 25, 2024 12:01
[2024-07-26 01:02] VITALS: BP 130/86; PULSE 87; RESP 18; TEMP 97.5; O2SAT 96
[2024-07-26 04:53] VITALS: BP 139/87; PULSE 81; RESP 20; TEMP 97.8; O2SAT 98
[2024-07-26] MEDS ORDERED: SUM25T PO (08:55)
[2024-07-26] MEDS ORDERED: AMLO1TAB23 PO (08:55)
[2024-07-26] MEDS ORDERED: CLON0.1T PO (08:55)
[2024-07-26] MEDS ORDERED: HYDR25TA5 PO (08:55)
[2024-07-26] MEDS ORDERED: LISI20TA56 PO (08:55)
[2024-07-26 09:00] VITALS: BP 130/60; PULSE 79; RESP 16; TEMP 98.1; O2SAT 98
[2024-07-26] MEDS ORDERED: SUMAtriptan SUCCINATE 25 MG TAB PO PRN (09:00)
--- NOTE | 2024-07-26 09:22 | DVHDS2 ---
Discharge Summary Date of Admission Jul 23, 2024 at 19:20 Date of Discharge: Jul 26, 2024 Labs/Diagnostic Data: Laboratory Results Test 07/24/24 05:28 07/23/24 18:53 07/23/24 15:40 Sodium Level 138 mmol/L (136-145) Potassium Level 4.0 mmol/L (3.5-5.1) Chloride Level 106 mmol/L (98-107) Carbon Dioxide Level 24 mmol/L (20-31) Anion Gap 8 (5-15) Blood Urea Nitrogen 16 mg/dL (9-23) Creatinine 0.64 mg/dL (0.550-1.02) Glomerular Filtration Rate Calc 99 mL/min (>90) BUN/Creatinine Ratio 25.0 (10.0-20.0) Serum Glucose 117 mg/dL (74-106) Hemoglobin A1c 6.0 % A1C (<5.7) Calcium Level 10.1 mg/dL (8.7-10.4) B-Type Natriuretic Peptide 6.49 pg/mL (0-100) Triglycerides Level 141 mg/dL (< 150) Cholesterol Level 169 mg/dL (< 200) LDL Cholesterol 101 mg/dL (< 100) HDL Cholesterol 46 mg/dL (40-59) Troponin I High Sensitivity < 3 ng/L (</=34) White Blood Count 8.0 10^3/uL (4.4-10.8) Red Blood Count 5.03 10^6/uL (4.0-5.20) Hemoglobin 14.8 g/dL (12.2-16.2) Hematocrit 42.3 % (36.0-46.0) Mean Corpuscular Volume 84.1 fL (80.0-100.0) Mean Corpuscular Hemoglobin 29.4 pg (28.0-32.0) Mean Corpuscular Hemoglobin Concent 35.0 g/dL (32.0-36.0) Red Cell Distribution Width 13.3 % (11.8-14.3) Platelet Count 322 10^3/uL (140-450) Mean Platelet Volume 8.1 fL (6.9-10.8) Neutrophils (%) (Auto) 53.1 % (37.0-80.0) Lymphocytes (%) (Auto) 33.3 % (10.0-50.0) Monocytes (%) (Auto) 10.6 % (0.0-12.0) Eosinophils (%) (Auto) 2.4 % (0.0-7.0) Basophils (%) (Auto) 0.6 % (0.0-2.0) Neutrophils # (Auto) 4.2 10 ^3/uL (1.6-8.6) Lymphocytes # (Auto) 2.7 10 ^3/uL (0.4-5.4) Monocytes # (Auto) 0.8 10 ^3/uL (0-1.3) Eosinophils # (Auto) 0.2 10 ^3/uL (0-0.8) Basophils # (Auto) 0.1 10 ^3/uL (0-0.2) Nucleated Red Blood Cells 0.1 % Other Laboratory Tests 07/24/24 05:28 07/23/24 15:40 Brief Hx & Hospital Course: 64-year-old female presents for evaluation of hypertension. Patient reports developing some slurred speech and left hand numbness today. That prompted her to check her blood pressure which was reading high in the 200s. She denies headache or blurred vision. Currently her symptoms have subsided. Blood pressures in the 170s. Denies chest pain or shortness for breath. No other acute complaints reported. Patient also reports she has not taking her antihypertensives for six months. Patient was admitted on July 23, 2024 for hypertensive urgency, headache, and left arm numbness. Patient was given antihypertensives and her symptoms, including left arm numbness, resolved. Patient continued to have some mild residual headache. MRI was done, and CVA was ruled out. Patient was evaluated by cardiology, and blood pressure medications were adjusted. It was noted that patient had been off blood pressure medications for 56 months and had no PCP follow-up during that time. Patient was unable to be seen by neurology during admission, but no acute findings were noted on MRI. Patient was informed that headache was most likely secondary to hypertensive urgency. Imitrex was ordered upon discharge for migraines as needed. Patient was instructed to follow up with her PCP in one week and neurology if needed on an outpatient basis. The patient received proper medical treatment and medications. Vital signs, Imaging and Laboratory Work was monitored. All consults recommendations were followed as provided. There were no complaints or new complaints upon discharge, all questions and concerns were answered. Patient was advised to return to the ER or call 911 if any headaches, dizziness, shortness of breath, chest pain, bleeding, fevers, or worsening of medical condition. Patient/Family was counseled about treatment plan, medications, possible side effects, patientverbalized understanding. All questions were answered to the best of my ability. The patient symptoms improved and they are okay to be DC. Condition at Discharge: Good Final Diagnosis/Problems List Uncontrolled blood pressure Headache most likely from uncontrolled blood pressure CVA ruled out Discharge Disposition: Home Discharge Instruct/Medications Diet: Cardiac 2g Na,low cholest Activity: No Restrictions, As Tolerated Follow Up/Referral: pcp 1 week Discharge Statement: "Patient was advised to return to the ER or call 911 if any headaches, dizziness, shortness of breath, chest pain, abdominal pain, bleeding, fevers, or worsening of medical condition. Patient was counseled about treatment plan, medications, possible side effects, patientverbalized understanding. All questions were answered to the best of my ability. This discharge took greater then 30 minutes in planning, reviewing documentation, counseling the patient, and discussing with other team members." ASSESSMENT ASSESSMENT Assessment Uncontrolled blood pressure Headache most likely from uncontrolled blood pressure CVA ruled out HAKEEM YOON NP Jul 26, 2024 09:22
[2024-07-26 12:13] VITALS: BP 130/60; PULSE 79; RESP 16; TEMP 98.1; O2SAT 98
== END 2024-07-26 13:11 | disposition home or self-care (01) | DRG 199 ==
LOC: ER 14:58 → OVERFLOW 19:20 → UNDODISIN 20:46 → EAST 22:35
PROVIDERS: ADMIT Nurse Practitioner; ATTEND Nurse Practitioner
DX: I16.1 Hypertensive emergency (principal); E66.01 Morbid (severe) obesity due to excess calories; Z68.42 Body mass index [BMI] 45.0-49.9, adult; I10 Essential (primary) hypertension; G43.909 Migraine, unspecified, not intractable, without status migrainosus; Z82.3 Family history of stroke; Z90.710 Acquired absence of both cervix and uterus
CPT/HCPCS: 36415; 70450; 70551; 71045; 80048; 80061; 83036; 83880; 84484; 85025; 93005; 93306; 96374; 99291; G0378; J2405